=== PATIENT | male | born 1985 | race Caucasian/White ===

== ENCOUNTER 2018-09-15 18:06 | Emergency (ER) | payer OTHER ==
[~2018-09-15] VITALS: Ht 172.7 cm; Wt 81.7 kg
[~2018-09-15 18:06] MED LIST: ACYCLOVIR 800800 MG PO; GABAPENTIN 100100 MG PO; NORCO 5-325 TA1 EACH PO
[2018-09-15 18:12] VITALS: BP 132/77
[2018-09-15] MEDS ORDERED: PENICILLIN V P500 MG PO (18:22)
[2018-09-15] MEDS ORDERED: PERCOCET 5-3251 EACH PO (18:22)
== END 2018-09-15 18:30 | disposition home or self-care (01) ==
LOC: M.ERS 18:06
DX: K08.89 Other specified disorders of teeth and supporting structures (principal); F17.210 Nicotine dependence, cigarettes, uncomplicated

== ENCOUNTER 2020-01-15 17:37 | Emergency (ER) | payer OTHER ==
[~2020-01-15] VITALS: Ht 172.7 cm; Wt 86.2 kg
[~2020-01-15 17:37] MED LIST changes: +PENICILLIN V P500 MG PO; +PERCOCET 5-3251 EACH PO
[2020-01-15 19:06] LABS: ABSOLUTE BASOPHILS 0.1 thou/uL (0.0-0.2); ABSOLUTE EOSINOPHILS 0.1 thou/uL (0.0-0.7); ABSOLUTE LYMPHOCYTES 1.9 thou/uL (0.8-5.3); ABSOLUTE MONOCYTES 0.5 thou/uL (0.0-1.2); ABSOLUTE NEUTROPHILS 7.9 thou/uL (1.6-8.1); BASOPHILS 0.7 %; HEMATOCRIT 43.2 % (42.0-52.0); HEMOGLOBIN 15.4 gm/dL (14.0-18.0); LYMPHOCYTES 18.2 %; MCH 32.7 pg (26.0-34.0); MCHC 35.6 g/dL (28.0-37.0); MONOCYTES 4.3 %; MPV 8.3 fl. (7.2-11.1); NUCLEATED RBCS 0 /100WBC; PLATELET COUNT* 211 thou/uL (150-400); POLYS 75.8 %; RDW-CV 13.5 % (10.5-14.5); WBC 10.4 thou/uL (4.0-11.0)
[2020-01-15 19:18] LABS: CALCIUM 8.3 mg/dL (8.5-10.1)
[2020-01-15 19:23] LABS: ALBUMIN 4.1 g/dL (3.4-5.0); TOTAL BILIRUBIN 0.3 mg/dL (<0.1-1.0); TOTAL PROTEIN 7.3 g/dL (6.4-8.2)
[2020-01-15] MEDS ORDERED: NORCO 5-325 TA1 EAC2 PO (20:43)
[2020-01-15 20:47] LABS: URINE BILIRUBIN NEGATIVE (Negative); URINE BLOOD TRACE (Negative); URINE CLARITY CLEAR; URINE COLOR YELLOW; URINE GLUCOSE-RANDOM NEGATIVE (Negative); URINE KETONES NEGATIVE (Negative); URINE LEUKOCYTES-REFLEX NEGATIVE (Negative); URINE NITRITE-REFLEX NEGATIVE (Negative); URINE PROTEIN NEGATIVE (Negative); URINE SPECIFIC GRAVITY <= 1.005 (1.005-1.030); URINE UROBILINOGEN 0.2 E.U./dl (0.2-1.0)
[2020-01-15 21:22] VITALS: BP 124/71
== END 2020-01-15 21:23 | disposition home or self-care (01) ==
LOC: M.ERS 17:37
PROVIDERS: Personal Emergency Response Attendant; Physician Assistant
DX: N50.3 Cyst of epididymis (principal); N50.812 Left testicular pain; N50.811 Right testicular pain; F17.210 Nicotine dependence, cigarettes, uncomplicated